=== PATIENT | female | born 1990 | race Caucasian/White ===

== ENCOUNTER 2016-09-12 01:27 | Inpatient (IN) | payer BC ==
[2016-09-12] VITALS (26 sets, daily range): BP systolic 101–135; BP diastolic 55–80
[~2016-09-12] VITALS: Ht 167.6 cm; Wt 73.5 kg
[2016-09-12 03:01] LABS: EOSINOPHIL (%) 0.9 % (0-5); EOSINOPHIL COUNT 0.1 K/uL (0-0.3); HEMATOCRIT 32.9 % (36.0-46.0); IMMATURE GRANULOCYTE (%) 0.1 % (0.0-0.7); IMMATURE GRANULOCYTE COUNT 0.1 K/uL; LYMPHOCYTE COUNT 2.8 K/uL (1.0-2.8); MCH 25.8 PG (29.0-34.0); MCHC 32.8 G/DL (30.0-36.0); MCV 78.7 FL (83-99); MEAN PLAT.VOLUME 9.6 uM^3 (9.5-12.4); MONOCYTE (%) 7.6 % (3-12); MONOCYTE COUNT 0.7 K/uL (0-0.8); NEUTROPHIL (%) 59.8 % (45-76); NEUTROPHIL COUNT 5.3 K/uL (1.8-6.4); PLATELET COUNT 256 K/uL (156-360); RBC DIS.WIDTH-CV 12.7 % (11.8-14.6); RBC DIS.WIDTH-SD 35.4 % (39-53); RED BLOOD COUNT 4.18 M/uL (3.80-5.20); WHITE BLOOD COUNT 8.9 K/uL (4.1-10.2)
[2016-09-12] MEDS ORDERED: ZANTAC150 MG PO (04:07)
[2016-09-12] MEDS ORDERED: PRENATAL TABLE1 EAC3 PO (04:07)
[2016-09-12] MEDS ORDERED: IBUPROFEN800 MG PO (17:54)
[2016-09-13 07:31] VITALS: BP 114/64
[2016-09-13 22:19] VITALS: BP 123/58
== END 2016-09-14 12:08 | disposition home or self-care (01) | DRG 775 ==
LOC: LDRP-OP 01:27 → 2WEST 01:28 → LDRP-OP 10-11 14:42
PROVIDERS: Obstetrics & Gynecology
PROC: 10E0XZZ Delivery of Products of Conception, External Approach (ICD-10-PCS; principal; 2016-09-12)
PROC: 10907ZC Drainage of Amniotic Fluid, Therapeutic from Products of Conception, Via Natural or Artificial Opening (ICD-10-PCS; 2016-09-12)
PROC: 3E0S3BZ Introduction of Anesthetic Agent into Epidural Space, Percutaneous Approach (ICD-10-PCS; 2016-09-12)
DX: O70.1 Second degree perineal laceration during delivery (principal); Z3A.40 40 weeks gestation of pregnancy; Z37.0 Single live birth; O69.81X1 Labor and delivery complicated by cord around neck, without compression, fetus 1
CPT/HCPCS: 85025; C1755; J2405; J3010; J7120